=== PATIENT | male | born 1960 | race African-American/Black ===

== ENCOUNTER 2021-03-09 23:30 | Emergency (ER) | payer MEDICARE, OTHER ==
[~2021-03-09] VITALS: Ht 180.3 cm; Wt 99.8 kg
[~2021-03-09 23:30] MED LIST: Z.0.FLEXERIL10 MG PO; Z.0.VICODIN 5-5001 E PO
[2021-03-10] MEDS ORDERED: ALBUTEROL SULF 0.083% NEB SOLN 3 ML NEB NEB STA (00:04)
[2021-03-10] MEDS ORDERED: METHYLPREDNISOLONE SOD SUCC 125 MG/2ML VIAL IV ONE (00:15)
[2021-03-10] MEDS ORDERED: IPRATROPIUM BROMIDE 0.02% 2.5 ML NEB NEB ONE (00:15)
[2021-03-10 00:47] LABS: BASOPHILS # (AUTO) 0.1 (0.0-0.1); BASOPHILS % 0.6 % (0.0-1.0); EOSINOPHILS # (AUTO) 0.5 (0.0-0.4); EOSINOPHILS % 5.8 % (0.0-6.0); HEMATOCRIT 44.2 % (38.2-49.6); HEMOGLOBIN 13.3 g/dL (14.0-18.0); LYMPHOCYTES # (AUTO) 1.9 (1.0-3.2); LYMPHOCYTES % 21.9 % (18.0-39.1); MEAN CORPUSCULAR HEMOGLOBIN 22.1 pg (28-32); MEAN CORPUSCULAR HGB CONC 30.1 g/dL (31-35); MEAN CORPUSCULAR VOLUME 73.3 fL (81-99); MONOCYTES # (AUTO) 0.9 (0.2-0.8); NEUTROPHILS # (AUTO) 5.4 (2.1-6.9); NEUTROPHILS % 61.2 % (38.7-80.0); PLATELET COUNT 191 x10e3/uL (140-360); RED BLOOD COUNT 6.03 x10e6/uL (4.3-5.7); RED CELL DISTRIBUTION WIDTH 17.3 % (11.7-14.4)
[2021-03-10 01:14] LABS: ALANINE AMINOTRANSFERASE 21 IU/L (0-55); ALBUMIN 3.8 g/dL (3.5-5.0); ALBUMIN/GLOBULIN RATIO 0.9 (0.8-2.0); ALKALINE PHOSPHATASE 101 IU/L (40-150); ANION GAP 16.8 mmol/L (8-16); BLOOD UREA NITROGEN 13 mg/dL (7-26); BUN/CREATININE RATIO 11 (6-25); CALCIUM 9.6 mg/dL (8.4-10.2); CARBON DIOXIDE 26 mmol/L (22-29); CHLORIDE 102 mmol/L (98-107); CREATINE KINASE 116 IU/L (30-200); CREATININE, SERUM 1.21 mg/dL (0.72-1.25); EST GLOMERULAR FILTRATION RATE > 60 ML/MIN (60-); GLUCOSE 121 mg/dL (74-118); POTASSIUM 3.8 mmol/L (3.5-5.1); SODIUM 141 mmol/L (136-145)
[2021-03-10] MEDS ORDERED: IOPAMIDOL 370 MG/ML 200 ML INFUS..BTL INJ ONE (03:57)
[2021-03-10] MEDS ORDERED: SODIUM CHLORIDE 0.9% 50ML 50 ML ONE (03:57)
[2021-03-10 05:26] VITALS: BP 132/84
== END 2021-03-10 05:28 | disposition home or self-care (01) ==
LOC: ER 23:50
DX: U07.1 COVID-19 (principal); J44.9 Chronic obstructive pulmonary disease, unspecified; R05 Cough; R55 Syncope and collapse; F17.210 Nicotine dependence, cigarettes, uncomplicated
CPT/HCPCS: 36415; 70450; 71045; 71260; 80053; 82550; 82553; 84484; 85025; 93005; 94640; 99284; J2930; Q9967; U0002

== ENCOUNTER → 2021-12-20 | Day surgery (SDC) | payer MEDICARE, OTHER ==
[2021-12-18 13:14] LABS: BASOPHILS # (AUTO) 0.1 (0.0-0.1); BASOPHILS % 0.6 % (0.0-1.0); EOSINOPHILS # (AUTO) 0.4 (0.0-0.4); EOSINOPHILS % 3.4 % (0.0-6.0); HEMOGLOBIN 12.7 g/dL (14.0-18.0); LYMPHOCYTES # (AUTO) 2.8 (1.0-3.2); LYMPHOCYTES % 26.7 % (18.0-39.1); MEAN CORPUSCULAR HGB CONC 30.2 g/dL (31-35); MEAN CORPUSCULAR VOLUME 72.8 fL (81-99); MONOCYTES # (AUTO) 0.6 (0.2-0.8); MONOCYTES % 5.7 % (4.4-11.3); NEUTROPHILS # (AUTO) 6.5 (2.1-6.9); NEUTROPHILS % 63.1 % (38.7-80.0); PLATELET COUNT 244 x10e3/uL (140-360); RED BLOOD COUNT 5.77 x10e6/uL (4.3-5.7); RED CELL DISTRIBUTION WIDTH 15.1 % (11.7-14.4)
[~2021-12-20] MED LIST changes: +ASPIRIN325 MG PO; +BUPIVACAINE HCL 0.5% INJ 30 ML VIAL INJ ONE; +CYCLOBENZAPRINE10 MG PO; +DEXAMETHASONE SOD PHOS INJ 4 MG/ML SDV ONE; +FENTANYL CITRATE/PF 100MCG/2 ML INJ ONE; +HYDROMORPHONE 1MG/1ML INJ ONE; +IPRATROPIUM BROMIDE 0.02% 2.5 ML NEB ONE; +KETOROLAC TROMETHAMINE 30 MG/ML VIAL ONE; +LIDOCAINE HCL 2% LOCAL INJ 5 ML SDV VIAL INJ ONE; +LOSARTAN POTASS25 MG PO; +METFORMIN500 MG/5 M; +MIDAZOLAM HCL 2 MG/2 ML VIAL ONE; +ONDANSETRON HCL INJ 2MG/ML 2ML 2 MG/ML VIAL ONE; +POVIDONE IODINE 0.05% 0.05 % ML PO ONE; +PREDNISONE5 MG PO; +PROPOFOL IV EMULSION 10 MG/ML 20 ML VIAL ONE; +PROTONIX20 MG PO; +SEVOFLURANE INHAL SOLN 250 ML PEN BTL ONE; +SODIUM CHLORIDE 0.9% 50ML 50 ML ONE; +TRILOGY; +ULTRAM50 MG PO
[2021-12-20 09:05] VITALS: BP 128/88
== END | disposition home or self-care (01) ==
LOC: OR 07:40
PROVIDERS: ATTEND Podiatrist Foot & Ankle Surgery
DX: S92.351A Displaced fracture of fifth metatarsal bone, right foot, initial encounter for closed fracture (principal); M06.9 Rheumatoid arthritis, unspecified; J44.9 Chronic obstructive pulmonary disease, unspecified; I10 Essential (primary) hypertension; E11.9 Type 2 diabetes mellitus without complications; K21.9 Gastro-esophageal reflux disease without esophagitis; E66.01 Morbid (severe) obesity due to excess calories; F17.200 Nicotine dependence, unspecified, uncomplicated; X58.XXXA Exposure to other specified factors, initial encounter; Z01.810 Encounter for preprocedural cardiovascular examination; Z01.812 Encounter for preprocedural laboratory examination; Z01.818 Encounter for other preprocedural examination; Z20.822 Contact with and (suspected) exposure to COVID-19; Z79.52 Long term (current) use of systemic steroids; Z79.84 Long term (current) use of oral hypoglycemic drugs; Z79.82 Long term (current) use of aspirin; Z79.899 Other long term (current) drug therapy; Z68.41 Body mass index [BMI] 40.0-44.9, adult; Z87.19 Personal history of other diseases of the digestive system
CPT/HCPCS: 28485; 36415 ×2; 71046; 82948; 85025; 93005; C1713; C1769; J0690; J1100; J1170; J1885; J2001; J2250; J2405; J2704; J3010; U0002

== ENCOUNTER 2024-07-13 18:14 | Inpatient (IN) | payer MEDICARE ==
[~2024-07-13] VITALS: Ht 185.4 cm; Wt 142.9 kg
[~2024-07-13 18:14] MED LIST changes: +ATORVASTATIN CA20 MG PO; +AZITHROMYCIN250 MG PO; +BENZONATATE100 MG PO; -BUPIVACAINE HCL 0.5% INJ 30 ML VIAL INJ ONE; +CEPHALEXIN500 MG PO; -DEXAMETHASONE SOD PHOS INJ 4 MG/ML SDV ONE; +Docusate Sodium PO; -FENTANYL CITRATE/PF 100MCG/2 ML INJ ONE; +FUROSEMIDE40 MG PO; -HYDROMORPHONE 1MG/1ML INJ ONE; -IPRATROPIUM BROMIDE 0.02% 2.5 ML NEB ONE; -KETOROLAC TROMETHAMINE 30 MG/ML VIAL ONE; -LIDOCAINE HCL 2% LOCAL INJ 5 ML SDV VIAL INJ ONE; +METFORMIN HCL500 MG PO; -MIDAZOLAM HCL 2 MG/2 ML VIAL ONE; +NAPROSYN500 MG PO; +NICODERM CQ1 EAC2 TOP; -ONDANSETRON HCL INJ 2MG/ML 2ML 2 MG/ML VIAL ONE; +ORPHENADRINE C100 MG PO; -POVIDONE IODINE 0.05% 0.05 % ML PO ONE; +PREDNISONE20 MG PO; -PROPOFOL IV EMULSION 10 MG/ML 20 ML VIAL ONE; -SEVOFLURANE INHAL SOLN 250 ML PEN BTL ONE; -SODIUM CHLORIDE 0.9% 50ML 50 ML ONE; +VENTOLIN HFA18 GM INH; +ZITHROMAX500 MG PO
[2024-07-13 18:46] VITALS: PULSE 92; RESP 20; O2SAT 92; O2SAT 96
[2024-07-13] MEDS: ALBUTEROL/IPRATROPIUM 3 ML NEB NEB STA (18:49)
[2024-07-13 19:03] LABS: BASOPHILS % 0.4 % (0.0-1.0); EOSINOPHILS # (AUTO) 0.3 (0.0-0.4); EOSINOPHILS % 2.5 % (0.0-6.0); HEMATOCRIT 44.2 % (38.2-49.6); HEMOGLOBIN 13.6 g/dL (14.0-18.0); LYMPHOCYTES # (AUTO) 1.4 (1.0-3.2); LYMPHOCYTES % 13.5 % (18.0-39.1); MEAN CORPUSCULAR HEMOGLOBIN 22.4 pg (28-32); MEAN CORPUSCULAR HGB CONC 30.8 g/dL (31-35); MEAN CORPUSCULAR VOLUME 72.9 fL (81-99); MONOCYTES # (AUTO) 1.3 (0.2-0.8); MONOCYTES % 12.5 % (4.4-11.3); NEUTROPHILS # (AUTO) 7.5 (2.1-6.9); NEUTROPHILS % 70.7 % (38.7-80.0); PLATELET COUNT 168 x10e3/uL (140-360); RED BLOOD COUNT 6.06 x10e6/uL (4.3-5.7); RED CELL DISTRIBUTION WIDTH 15.4 % (11.7-14.4); WHITE BLOOD COUNT 10.56 x10e3/uL (4.8-10.8)
[2024-07-13 19:19] LABS: ALBUMIN 4.2 g/dL (3.5-5.0); ALBUMIN/GLOBULIN RATIO 1.4 (0.8-2.0); ANION GAP 14.9 mmol/L (8-16); BILIRUBIN,TOTAL 0.5 mg/dL (0.2-1.2); CALCIUM 9.3 mg/dL (8.4-10.2); CREATININE, SERUM 1.13 mg/dL (0.72-1.25); POTASSIUM 3.9 mmol/L (3.5-5.1); TOTAL PROTEIN 7.3 g/dL (6.5-8.1)
[2024-07-13 19:26] LABS: TROPONIN I 0.026 ng/mL (0-0.300)
[2024-07-13] MEDS: SODIUM CHLORIDE 0.9% 1000ML 1,000 ML IV STA (19:38)
[2024-07-13] MEDS: ACETAMINOPHEN 325 MG TAB PO STA (19:39)
[2024-07-13] MEDS: METHYLPREDNISOLONE SOD SUCC 125 MG/2ML VIAL IV STA (19:39)
[2024-07-13] MEDS ORDERED: SODIUM CHLORIDE FLUSH 10 ML SYR INJ PRN (19:45)
[2024-07-13 21:30] VITALS: PULSE 81; RESP 20; TEMP 99.5
[2024-07-13 22:00] VITALS: BP 122/96; PULSE 94; RESP 20; TEMP 98.4; O2SAT 95
[2024-07-13 22:03] VITALS: BP 122/96; PULSE 84; RESP 22; TEMP 98.4; O2SAT 98
[2024-07-13] MEDS ORDERED: SODIUM CHLORIDE 0.9% 250ML 250 ML ONE (22:31)
[2024-07-13] MEDS: Morphine 4mg INJECTION 4 MG/ML INJ IV PRN (22:38)
[2024-07-13] MEDS: ONDANSETRON HCL INJ 2MG/ML 2ML 2 MG/ML VIAL IV PRN (22:39)
[2024-07-14] VITALS (10 sets, daily range): BP systolic 122–125; BP diastolic 78–84; PULSE 63–91; RESP 18–20; TEMP 97.7–98.4; O2SAT 93–98
[2024-07-14] MEDS: ALBUTEROL/IPRATROPIUM 3 ML NEB NEB ONE (01:30)
[2024-07-14] MEDS: METHYLPREDNISOLONE SOD SUCC 125 MG/2ML VIAL IV SCH (01:59)
[2024-07-14 03:03] LABS: BASOPHILS % 0.2 % (0.0-1.0); EOSINOPHILS % 0.1 % (0.0-6.0); HEMATOCRIT 41.6 % (38.2-49.6); HEMOGLOBIN 12.7 g/dL (14.0-18.0); LYMPHOCYTES # (AUTO) 0.6 (1.0-3.2); LYMPHOCYTES % 6.5 % (18.0-39.1); MEAN CORPUSCULAR HEMOGLOBIN 22.4 pg (28-32); MEAN CORPUSCULAR HGB CONC 30.5 g/dL (31-35); MEAN CORPUSCULAR VOLUME 73.4 fL (81-99); MONOCYTES # (AUTO) 0.1 (0.2-0.8); MONOCYTES % 1.1 % (4.4-11.3); NEUTROPHILS # (AUTO) 8.7 (2.1-6.9); NEUTROPHILS % 91.5 % (38.7-80.0); PLATELET COUNT 158 x10e3/uL (140-360); RED BLOOD COUNT 5.67 x10e6/uL (4.3-5.7); RED CELL DISTRIBUTION WIDTH 15.4 % (11.7-14.4); WHITE BLOOD COUNT 9.48 x10e3/uL (4.8-10.8)
[2024-07-14 03:13] LABS: ALBUMIN 3.9 g/dL (3.5-5.0); ALBUMIN/GLOBULIN RATIO 1.2 (0.8-2.0); ANION GAP 13.5 mmol/L (8-16); BILIRUBIN,TOTAL 0.4 mg/dL (0.2-1.2); CREATININE, SERUM 1.27 mg/dL (0.72-1.25); POTASSIUM 4.5 mmol/L (3.5-5.1); TOTAL PROTEIN 7.1 g/dL (6.5-8.1)
[2024-07-14 03:20] LABS: TROPONIN I 0.024 ng/mL (0-0.300)
[2024-07-14] MEDS ORDERED: DOCUSATE SODIUM 100 MG CAP PO PRN (07:00)
[2024-07-14] MEDS ORDERED: METOPROLOL TARTRATE INJ 1 MG/ML VIAL IV PRN (07:00)
[2024-07-14] MEDS ORDERED: SIMETHICONE 80 MG CHEW PO PRN (07:00)
[2024-07-14] MEDS ORDERED: MELATONIN 3 MG TAB PO PRN (07:00)
[2024-07-14] MEDS ORDERED: GUAIFENESIN/DEXTROMETHORPHAN LIQD 5 ML UDC NG PRN (07:00)
[2024-07-14] MEDS ORDERED: ACETAMINOPHEN 325 MG TAB PO PRN (07:00)
[2024-07-14] MEDS ORDERED: DEXTROSE 50% SYRINGE 50 ML IV PRN (07:15)
[2024-07-14] MEDS: INSULIN REGULAR, HUMAN 100 UNIT/1 ML SQ SCH (07:30)
[2024-07-14 07:33] LABS: CHOL/HDL RATIO 3.4 (3.9-4.7)
[2024-07-14] MEDS: ALBUTEROL/IPRATROPIUM 3 ML NEB NEB PRN (07:38)
[2024-07-14] MEDS: BENZONATATE 100 MG CAP PO SCH (10:01)
[2024-07-14] MEDS: FAMOTIDINE 20 MG TAB PO SCH (10:01)
[2024-07-14] MEDS: LORATADINE 10 MG TAB PO SCH (10:01)
[2024-07-14 14:38] LABS: TROPONIN I 0.026 ng/mL (0-0.300)
[2024-07-14] MEDS: ENOXAPARIN SOD INJ 40 MG/0.4 ML SYR SC SCH (16:51)
[2024-07-15 04:00] VITALS: BP_SYST 124; BP_SYST 125; BP_DIAS 72; BP_DIAS 82; PULSE 79; PULSE 80; RESP 20; RESP 21; TEMP 97.5; TEMP 97.6; O2SAT 95
[2024-07-15 05:36] LABS: BASOPHILS % 0.1 % (0.0-1.0); HEMATOCRIT 39.2 % (38.2-49.6); HEMOGLOBIN 12.1 g/dL (14.0-18.0); LYMPHOCYTES % 5.3 % (18.0-39.1); MEAN CORPUSCULAR HEMOGLOBIN 22.7 pg (28-32); MEAN CORPUSCULAR HGB CONC 30.9 g/dL (31-35); MEAN CORPUSCULAR VOLUME 73.4 fL (81-99); MONOCYTES % 5.4 % (4.4-11.3); NEUTROPHILS # (AUTO) 15.9 (2.1-6.9); NEUTROPHILS % 88.6 % (38.7-80.0); PLATELET COUNT 187 x10e3/uL (140-360); RED BLOOD COUNT 5.34 x10e6/uL (4.3-5.7); RED CELL DISTRIBUTION WIDTH 15.6 % (11.7-14.4); WHITE BLOOD COUNT 17.96 x10e3/uL (4.8-10.8)
[2024-07-15 06:07] LABS: ANION GAP 13.4 mmol/L (8-16); CALCIUM 8.6 mg/dL (8.4-10.2); CREATININE, SERUM 1.09 mg/dL (0.72-1.25); POTASSIUM 4.4 mmol/L (3.5-5.1)
[2024-07-15] MEDS ORDERED: LORATADINE10 MG PO (08:32)
[2024-07-15] MEDS ORDERED: ONDANSETRON HCL 4 MG ORAL DISINTEGRATING TAB PO PRN (11:00)
== END 2024-07-15 10:30 | disposition home or self-care (01) | DRG 177 ==
LOC: ER 18:23 → ERHOLD 19:38 → MED/SURG3 21:26
PROVIDERS: ADMIT Internal Medicine; ATTEND Internal Medicine
DX: U07.1 COVID-19 (principal); J12.82 Pneumonia due to coronavirus disease 2019; J96.21 Acute and chronic respiratory failure with hypoxia; R04.2 Hemoptysis; Z68.41 Body mass index [BMI] 40.0-44.9, adult; J90 Pleural effusion, not elsewhere classified; J44.0 Chronic obstructive pulmonary disease with (acute) lower respiratory infection; J44.1 Chronic obstructive pulmonary disease with (acute) exacerbation; Z87.891 Personal history of nicotine dependence; Z99.81 Dependence on supplemental oxygen; E11.9 Type 2 diabetes mellitus without complications; Z79.84 Long term (current) use of oral hypoglycemic drugs; E66.01 Morbid (severe) obesity due to excess calories; M06.9 Rheumatoid arthritis, unspecified; G89.29 Other chronic pain; M54.9 Dorsalgia, unspecified; F19.11 Other psychoactive substance abuse, in remission; Z71.81 Spiritual or religious counseling; Z79.899 Other long term (current) drug therapy
CPT/HCPCS: 36415; 71045; 71250; 80048; 80053; 80061; 82550; 82948; 83036; 83605; 83690; 83880; 84484; 85025; 87040; 87400; 93005; 94640; 94799; 96372; 99252; 99284; J1650; J2270; J2405; J2543; J2919; J7030; J7050; U0002

== ENCOUNTER 2024-09-08 20:09 | Inpatient (IN) | payer MEDICARE ==
[~2024-09-08] VITALS: Ht 185.4 cm; Wt 142.9 kg
[~2024-09-08 20:09] MED LIST changes: +LORATADINE10 MG PO
[2024-09-08 20:16] VITALS: TEMP 98.5
[2024-09-08 20:44] LABS: BASOPHILS # (AUTO) 0.1 (0.0-0.1); BASOPHILS % 0.5 % (0.0-1.0); EOSINOPHILS # (AUTO) 0.7 (0.0-0.4); EOSINOPHILS % 6.8 % (0.0-6.0); HEMATOCRIT 40.7 % (38.2-49.6); HEMOGLOBIN 12.4 g/dL (14.0-18.0); LYMPHOCYTES # (AUTO) 2.3 (1.0-3.2); LYMPHOCYTES % 22.8 % (18.0-39.1); MEAN CORPUSCULAR HGB CONC 30.5 g/dL (31-35); MEAN CORPUSCULAR VOLUME 75.5 fL (81-99); MONOCYTES # (AUTO) 0.6 (0.2-0.8); MONOCYTES % 5.7 % (4.4-11.3); NEUTROPHILS # (AUTO) 6.3 (2.1-6.9); NEUTROPHILS % 63.7 % (38.7-80.0); PLATELET COUNT 179 x10e3/uL (140-360); RED BLOOD COUNT 5.39 x10e6/uL (4.3-5.7); RED CELL DISTRIBUTION WIDTH 15.8 % (11.7-14.4); WHITE BLOOD COUNT 9.95 x10e3/uL (4.8-10.8)
[2024-09-08 20:59] LABS: ALBUMIN 3.5 g/dL (3.5-5.0); ALBUMIN/GLOBULIN RATIO 1.2 (0.8-2.0); ANION GAP 15.7 mmol/L (8-16); BILIRUBIN,TOTAL 0.4 mg/dL (0.2-1.2); CALCIUM 8.9 mg/dL (8.4-10.2); CREATININE, SERUM 1.04 mg/dL (0.72-1.25); POTASSIUM 3.7 mmol/L (3.5-5.1); TOTAL PROTEIN 6.5 g/dL (6.5-8.1)
[2024-09-08] MEDS: FUROSEMIDE INJ 10 MG/ML 4 ML VIAL IV ONE (21:14)
[2024-09-08 21:36] VITALS: PULSE 90; RESP 16; O2SAT 95
[2024-09-08] MEDS: ALBUTEROL/IPRATROPIUM 3 ML NEB NEB ONE (21:39)
[2024-09-08 21:44] VITALS: PULSE 91; RESP 24
[2024-09-08] MEDS ORDERED: SODIUM CHLORIDE FLUSH 10 ML SYR INJ PRN (21:45)
[2024-09-08] MEDS ORDERED: DEXTROSE 50% SYRINGE 50 ML IV PRN (21:45)
[2024-09-08 22:01] LABS: AMPHETAMINES SCREEN,URINE NEGATIVE (NEGATIVE); BENZODIAZEPINES SCREEN,URINE NEGATIVE (NEGATIVE); CANNABINOIDS SCREEN,URINE NEGATIVE (NEGATIVE); METHADONE SCREEN, URINE NEGATIVE (NEGATIVE); OPIATES SCREEN,URINE NEGATIVE (NEGATIVE); PHENCYCLIDINE SCREEN,URINE NEGATIVE (NEGATIVE)
[2024-09-09] VITALS (14 sets, daily range): BP systolic 108–138; BP diastolic 71–85; PULSE 77–101; RESP 18–22; TEMP 97.8–98.4; O2SAT 94–99
[2024-09-09] MEDS ORDERED: DOCUSATE SODIUM 100 MG CAP PO PRN (01:45)
[2024-09-09] MEDS ORDERED: HYDRALAZINE HCL 20 MG/ML VIAL IV PRN (01:45)
[2024-09-09] MEDS ORDERED: DIPHENHYDRAMINE HCL 25 MG CAP PO PRN (01:45)
[2024-09-09] MEDS ORDERED: ACETAMINOPHEN 325 MG TAB PO PRN (01:45)
[2024-09-09] MEDS ORDERED: ONDANSETRON HCL INJ 2MG/ML 2ML 2 MG/ML VIAL IV PRN (01:45)
[2024-09-09] MEDS ORDERED: LIDOCAINE 4% PATCH TP PRN (01:45)
[2024-09-09] MEDS ORDERED: DEXTROSE 50% SYRINGE 50 ML IV PRN (01:45)
[2024-09-09] MEDS: ALBUTEROL/IPRATROPIUM 3 ML NEB NEB SCH (01:57)
[2024-09-09] MEDS: FUROSEMIDE INJ 10 MG/ML 4 ML VIAL IV ONE (02:15)
[2024-09-09] MEDS: BENZONATATE 100 MG CAP PO PRN (02:15)
[2024-09-09] MEDS: SIMETHICONE 80 MG CHEW PO PRN (02:15)
[2024-09-09] MEDS: HYDROCODONE/APAP 5MG-325MG TAB PO PRN (02:16)
[2024-09-09] MEDS: FUROSEMIDE INJ 10 MG/ML 4 ML VIAL IV SCH (02:30)
[2024-09-09 02:31] LABS: TROPONIN I 0.023 ng/mL (0-0.300)
[2024-09-09] MEDS ORDERED: FUROSEMIDE INJ 10 MG/ML 4 ML VIAL IV SCH (09:00)
[2024-09-09 09:07] LABS: TROPONIN I 0.024 ng/mL (0-0.300)
[2024-09-09] MEDS: PANTOPRAZOLE SOD 40 MG TABEC PO SCH (10:14)
[2024-09-09] MEDS: INSULIN REGULAR, HUMAN 100 UNIT/1 ML SQ SCH (10:15)
[2024-09-09 12:28] LABS: ANION GAP 15.5 mmol/L (8-16); CALCIUM 9.1 mg/dL (8.4-10.2); CREATININE, SERUM 1.35 mg/dL (0.72-1.25); POTASSIUM 3.5 mmol/L (3.5-5.1)
[2024-09-09 12:52] LABS: TROPONIN I 0.025 ng/mL (0-0.300)
[2024-09-09] MEDS: POTASSIUM CHLORIDE 20 MEQ TAB CR PO ONE (13:30)
[2024-09-09] MEDS: METOLAZONE 5 MG TAB PO ONE (13:31)
[2024-09-09] MEDS: ENOXAPARIN SOD INJ 40 MG/0.4 ML SYR SC SCH (17:40)
[2024-09-09] MEDS: ALBUTEROL/IPRATROPIUM 3 ML NEB NEB PRN (19:45)
[2024-09-09] MEDS: ATORVASTATIN 20 MG TAB PO SCH (22:08)
[2024-09-10] VITALS (13 sets, daily range): BP systolic 114–135; BP diastolic 82–95; PULSE 84–99; RESP 17–21; TEMP 97.9–98.5; O2SAT 93–100
[2024-09-10 05:25] LABS: BASOPHILS # (AUTO) 0.1 (0.0-0.1); BASOPHILS % 0.6 % (0.0-1.0); EOSINOPHILS # (AUTO) 0.7 (0.0-0.4); EOSINOPHILS % 5.2 % (0.0-6.0); HEMATOCRIT 45.3 % (38.2-49.6); HEMOGLOBIN 13.9 g/dL (14.0-18.0); LYMPHOCYTES # (AUTO) 2.5 (1.0-3.2); LYMPHOCYTES % 19.8 % (18.0-39.1); MEAN CORPUSCULAR HEMOGLOBIN 22.9 pg (28-32); MEAN CORPUSCULAR HGB CONC 30.7 g/dL (31-35); MEAN CORPUSCULAR VOLUME 74.6 fL (81-99); MONOCYTES # (AUTO) 1.1 (0.2-0.8); NEUTROPHILS # (AUTO) 8.2 (2.1-6.9); NEUTROPHILS % 64.8 % (38.7-80.0); PLATELET COUNT 216 x10e3/uL (140-360); RED BLOOD COUNT 6.07 x10e6/uL (4.3-5.7); RED CELL DISTRIBUTION WIDTH 15.8 % (11.7-14.4); WHITE BLOOD COUNT 12.65 x10e3/uL (4.8-10.8)
[2024-09-10 05:55] LABS: ANION GAP 18.5 mmol/L (8-16); CALCIUM 9.8 mg/dL (8.4-10.2); CREATININE, SERUM 1.46 mg/dL (0.72-1.25); MAGNESIUM 1.8 MG/DL (1.3-2.1); POTASSIUM 3.5 mmol/L (3.5-5.1)
[2024-09-10 06:17] LABS: CHOL/HDL RATIO 2.7 (3.9-4.7)
[2024-09-10 06:35] LABS: THYROID STIMULATING HORMONE 1.601 uIU/mL (0.350-4.940)
[2024-09-10] MEDS: POTASSIUM CHLORIDE 20 MEQ TAB CR PO ONE (16:43)
[2024-09-10] MEDS: MELATONIN 5 MG TABLET PO PRN (20:49)
[2024-09-11] VITALS (10 sets, daily range): BP systolic 115–148; BP diastolic 72–91; PULSE 88–96; RESP 20–22; TEMP 97.8–98.9; O2SAT 95–100
[2024-09-11 05:10] LABS: HEMATOCRIT 44.4 % (38.2-49.6); HEMOGLOBIN 13.6 g/dL (14.0-18.0)
[2024-09-11 05:40] LABS: ANION GAP 18.3 mmol/L (8-16); CALCIUM 9.6 mg/dL (8.4-10.2); CREATININE, SERUM 1.32 mg/dL (0.72-1.25)
[2024-09-11 05:44] LABS: POTASSIUM 3.3 mmol/L (3.5-5.1)
[2024-09-11] MEDS: POTASSIUM CHLORIDE 20 MEQ TAB CR PO PRN (15:55)
[2024-09-11] MEDS ORDERED: ONDANSETRON HCL 4 MG ORAL DISINTEGRATING TAB PO PRN (17:00)
== END 2024-09-11 16:50 | disposition home or self-care (01) | DRG 291 ==
LOC: ER 20:23 → ERHOLD 21:39 → MED/SURG 22:30 → OBSVTOIN 09-10 15:57
PROVIDERS: ADMIT Internal Medicine; ATTEND Internal Medicine
DX: I11.0 Hypertensive heart disease with heart failure (principal); I50.33 Acute on chronic diastolic (congestive) heart failure; J44.1 Chronic obstructive pulmonary disease with (acute) exacerbation; E66.01 Morbid (severe) obesity due to excess calories; Z68.41 Body mass index [BMI] 40.0-44.9, adult; E78.5 Hyperlipidemia, unspecified; E11.9 Type 2 diabetes mellitus without complications; T38.3X6A Underdosing of insulin and oral hypoglycemic [antidiabetic] drugs, initial encounter; T50.1X6A Underdosing of loop [high-ceiling] diuretics, initial encounter; Z91.128 Patient's intentional underdosing of medication regimen for other reason; Z79.84 Long term (current) use of oral hypoglycemic drugs; M54.9 Dorsalgia, unspecified; M19.90 Unspecified osteoarthritis, unspecified site; Z87.891 Personal history of nicotine dependence
CPT/HCPCS: 36415; 71045; 80048; 80053; 80061; 80307; 82550; 82948; 83036; 83735; 83880; 84443; 84484; 85014; 85018; 85025; 93005; 93306; 93970; 94640; 94799; 99284; G0378; J1650; J1940

== ENCOUNTER 2025-05-11 18:05 | Inpatient (IN) | payer MEDICARE, OTHER ==
[~2025-05-11] VITALS: Ht 180.3 cm; Wt 144.4 kg
[~2025-05-11 18:05] MED LIST changes: +DOXYCYCLINE HY100 MG PO; +LASIX40 MG PO
[2025-05-11 18:20] VITALS: TEMP 98.5
[2025-05-11 18:58] LABS: BASOPHILS % 0.3 % (0.0-1.0); EOSINOPHILS # (AUTO) 0.6 (0.0-0.4); EOSINOPHILS % 5.1 % (0.0-6.0); HEMATOCRIT 42.5 % (38.2-49.6); HEMOGLOBIN 13.2 g/dL (14.0-18.0); LYMPHOCYTES # (AUTO) 2.5 (1.0-3.2); LYMPHOCYTES % 20.3 % (18.0-39.1); MEAN CORPUSCULAR HEMOGLOBIN 22.3 pg (28-32); MEAN CORPUSCULAR HGB CONC 31.1 g/dL (31-35); MEAN CORPUSCULAR VOLUME 71.8 fL (81-99); MONOCYTES % 7.9 % (4.4-11.3); NEUTROPHILS % 65.9 % (38.7-80.0); PLATELET COUNT 190 x10e3/uL (140-360); RED BLOOD COUNT 5.92 x10e6/uL (4.3-5.7); RED CELL DISTRIBUTION WIDTH 16.2 % (11.7-14.4); WHITE BLOOD COUNT 12.09 x10e3/uL (4.8-10.8)
[2025-05-11 19:17] LABS: ALBUMIN 3.3 g/dL (3.5-5.0); ALBUMIN/GLOBULIN RATIO 1.1 (0.8-2.0); ANION GAP 15.1 mmol/L (8-16); BILIRUBIN,TOTAL 0.5 mg/dL (0.2-1.2); CALCIUM 8.4 mg/dL (8.4-10.2); CREATININE, SERUM 1.14 mg/dL (0.72-1.25); POTASSIUM 4.1 mmol/L (3.5-5.1); TOTAL PROTEIN 6.2 g/dL (6.5-8.1)
[2025-05-11 19:25] LABS: TROPONIN I 0.019 ng/mL (0-0.300)
[2025-05-11] MEDS ORDERED: Morphine 4mg INJECTION 4 MG/ML INJ IV PRN (19:45)
[2025-05-11] MEDS ORDERED: SODIUM CHLORIDE FLUSH 10 ML SYR INJ PRN (19:45)
[2025-05-11] MEDS: ALBUTEROL/IPRATROPIUM 3 ML NEB NEB STA (19:54)
[2025-05-11] MEDS: METHYLPREDNISOLONE SOD SUCC 125 MG/2ML VIAL IV STA (20:06)
[2025-05-11] MEDS: ONDANSETRON HCL INJ 2MG/ML 2ML 2 MG/ML VIAL IV PRN (20:10)
[2025-05-11 20:13] VITALS: PULSE 94; RESP 26
[2025-05-11 20:45] VITALS: BP 139/102; PULSE 81; RESP 16; O2SAT 94
[2025-05-11] MEDS ORDERED: SPIRONOLACTONE25 MG PO (21:26)
[2025-05-11] MEDS ORDERED: METFORMIN HCL1000 MG PO (21:26)
[2025-05-11] MEDS ORDERED: ACETAMINOPHEN-1 EAC4 PO (21:30)
[2025-05-11 22:15] VITALS: BP 147/89; PULSE 65; RESP 16; TEMP 97.9; O2SAT 95
[2025-05-11] MEDS: ALBUTEROL SULF 0.083% NEB SOLN 3 ML NEB NEB SCH (23:20)
[2025-05-11] MEDS: METHYLPREDNISOLONE SOD SUCC 40 MG/ML VIAL 1ML IV SCH (23:39)
[2025-05-12] VITALS (35 sets, daily range): BP systolic 104–154; BP diastolic 63–110; PULSE 54–86; RESP 12–32; TEMP 97.6–98; O2SAT 92–100
[2025-05-12 05:03] LABS: TROPONIN I 0.017 ng/mL (0-0.300)
[2025-05-12 06:56] LABS: BASOPHILS % 0.2 % (0.0-1.0); HEMATOCRIT 42.6 % (38.2-49.6); HEMOGLOBIN 13.1 g/dL (14.0-18.0); LYMPHOCYTES % 9.7 % (18.0-39.1); MEAN CORPUSCULAR HEMOGLOBIN 22.6 pg (28-32); MEAN CORPUSCULAR HGB CONC 30.8 g/dL (31-35); MEAN CORPUSCULAR VOLUME 73.4 fL (81-99); MONOCYTES # (AUTO) 0.1 (0.2-0.8); NEUTROPHILS # (AUTO) 8.6 (2.1-6.9); NEUTROPHILS % 88.7 % (38.7-80.0); PLATELET COUNT 203 x10e3/uL (140-360); RED CELL DISTRIBUTION WIDTH 16.6 % (11.7-14.4); WHITE BLOOD COUNT 9.75 x10e3/uL (4.8-10.8)
[2025-05-12 07:24] LABS: ALBUMIN 3.3 g/dL (3.5-5.0); ANION GAP 13.8 mmol/L (8-16); BILIRUBIN,TOTAL 0.5 mg/dL (0.2-1.2); CALCIUM 8.5 mg/dL (8.4-10.2); CREATININE, SERUM 1.2 mg/dL (0.72-1.25); POTASSIUM 4.8 mmol/L (3.5-5.1); TOTAL PROTEIN 6.5 g/dL (6.5-8.1)
[2025-05-12] MEDS ORDERED: ZOLPIDEM TARTRATE 5 MG TAB PO PRN (08:15)
[2025-05-12] MEDS ORDERED: DEXTROSE 50% SYRINGE 50 ML IV PRN (08:30)
[2025-05-12] MEDS: Doxycycline IV 100 MG in SODIUM CHLORIDE 0.9% 100 ML IV SCH (09:19)
[2025-05-12] MEDS: INSULIN REGULAR, HUMAN 100 UNIT/1 ML SQ SCH (11:42)
[2025-05-12 13:10] LABS: TROPONIN I 0.02 ng/mL (0-0.300)
[2025-05-12] MEDS: FUROSEMIDE 40 MG TAB PO SCH (17:03)
[2025-05-12] MEDS: BUDESONIDE/FORMOTEROL 160/4.5MCG INHALER INH SCH (20:00)
[2025-05-12] MEDS: METHYLPREDNISOLONE SOD SUCC 40 MG/ML VIAL 1ML IV SCH (21:14)
[2025-05-12] MEDS: ATORVASTATIN 40 MG TAB PO SCH (21:15)
[2025-05-13] VITALS (8 sets, daily range): BP systolic 115–156; BP diastolic 59–84; PULSE 66–88; RESP 18–22; TEMP 97.2–98.1; O2SAT 94–100
[2025-05-13] MEDS: ALBUTEROL/IPRATROPIUM 3 ML NEB ONE (07:32)
[2025-05-13] MEDS: GLIPIZIDE 5 MG TAB ER PO SCH (10:42)
[2025-05-13] MEDS ORDERED: DOXYCYCLINE HY100 MG PO (10:52)
[2025-05-13] MEDS ORDERED: GLUCOTROL XL10 MG PO (10:52)
[2025-05-13] MEDS ORDERED: MEDROL DOSE PACK PO (10:53)
[2025-05-13] MEDS ORDERED: BREZTRI AEROS10.7 GM INH (10:55)
== END 2025-05-13 13:30 | disposition home or self-care (01) | DRG 189 ==
LOC: ER 18:14 → ERHOLD 19:50 → ICU 20:34 → MED/SURG 05-12 18:29
PROVIDERS: ADMIT Internal Medicine; ATTEND Internal Medicine
PROC: 5A09357 Assistance with Respiratory Ventilation, Less than 24 Consecutive Hours, Continuous Positive Airway Pressure (ICD-10-PCS; principal; 2025-05-11)
PROC: 02HV33Z Insertion of Infusion Device into Superior Vena Cava, Percutaneous Approach (ICD-10-PCS; 2025-05-12)
DX: J96.01 Acute respiratory failure with hypoxia (principal); I50.33 Acute on chronic diastolic (congestive) heart failure; J18.9 Pneumonia, unspecified organism; J44.1 Chronic obstructive pulmonary disease with (acute) exacerbation; Z68.41 Body mass index [BMI] 40.0-44.9, adult; J44.0 Chronic obstructive pulmonary disease with (acute) lower respiratory infection; Z87.891 Personal history of nicotine dependence; I11.0 Hypertensive heart disease with heart failure; M06.9 Rheumatoid arthritis, unspecified; G89.4 Chronic pain syndrome; M54.50 Low back pain, unspecified; E11.51 Type 2 diabetes mellitus with diabetic peripheral angiopathy without gangrene; E66.9 Obesity, unspecified; D64.9 Anemia, unspecified; E78.5 Hyperlipidemia, unspecified; M19.90 Unspecified osteoarthritis, unspecified site; M48.061 Spinal stenosis, lumbar region without neurogenic claudication; U09.9 Post COVID-19 condition, unspecified; G47.33 Obstructive sleep apnea (adult) (pediatric); M51.369 Other intervertebral disc degeneration, lumbar region without mention of lumbar back pain or lower extremity pain; Z79.84 Long term (current) use of oral hypoglycemic drugs; Z79.51 Long term (current) use of inhaled steroids; Z79.52 Long term (current) use of systemic steroids
CPT/HCPCS: 36415; 36569; 71045; 80053; 82550; 82948; 83690; 83880; 84484; 85025; 93005; 93306; 94640; 94660; 94664; 94799; 99284; J2405; J2919; J7050